=== PATIENT | male | born 1945 | race Caucasian/White ===

== ENCOUNTER → 2024-10-04 11:00 | Outpatient (REF) | payer MEDICARE, OTHER, SELFPAY | LOC: RCS 11:00 | PROVIDERS: ATTENDING PHYSICIAN Nuclear Medicine Nuclear Cardiology; FAMILY PHYSICIAN Internal Medicine Geriatric Medicine | DX: I10 Essential (primary) hypertension (principal); I25.10 Atherosclerotic heart disease of native coronary artery without angina pectoris; E78.5 Hyperlipidemia, unspecified; I34.0 Nonrheumatic mitral (valve) insufficiency | CPT/HCPCS: 93306 ==

== ENCOUNTER 2025-01-13 06:15 | Day surgery (SDC) | payer MEDICARE, OTHER, SELFPAY | END 2025-01-13 09:23 | disposition home or self-care (01) | LOC: GI 06:15 | PROVIDERS: ATTENDING PHYSICIAN Specialist | DX: K62.5 Hemorrhage of anus and rectum (principal); K57.30 Diverticulosis of large intestine without perforation or abscess without bleeding; K64.8 Other hemorrhoids; K52.832 Lymphocytic colitis; K63.5 Polyp of colon | CPT/HCPCS: 45380; 88305 ==